=== PATIENT | male | born 1980 | race Two or more races ===

== ENCOUNTER 2020-09-28 06:28 | Day surgery (SDC) | payer OTHER ==
[2020-09-28] VITALS (11 sets, daily range): BP systolic 99–123; BP diastolic 55–80
[~2020-09-28] VITALS: Ht 195.6 cm; Wt 99.8 kg
[~2020-09-28 06:28] MED LIST: ceFAZolin 1gm IVPB IVPB ONE; celeBREX 200mg Cap **SURGERY PATIENTS ONLY ORAL ONE; oxyCONTIN 20mg tab ORAL ONE
[2020-09-28] MEDS ORDERED: GABAPENTIN100 MG ORAL (07:01)
[2020-09-28] MEDS ORDERED: IBUPROFEN600 M1 ORAL (07:01)
--- NOTE | 2020-09-28 08:05 | Operative Note - PDOC ---
Operative Note Operative Note Pre-op Diagnosis: right ankle sprain/ chondral damage Procedure: see op report Post-op Diagnosis: same as pre-op plus Operative Findings: consistent w/pre-op dx studies Anesthesia: regional Specimen: none Complications: none Condition: stable Estimated Blood Loss: none Implant(s) used?: No Aníbal Powers MD Sep 28, 2020 08:05
--- NOTE | 2020-09-28 08:05 | Pre-Procedure Note/Attestation ---
Pre-Procedure Note/Attestation Complete Prior to Procedure Planned Procedure: right Procedure Narrative: ankle arthroscopy, possible synvectomy, chondroplasty Indications for Procedure Pre-Operative Diagnosis: right ankle sprain/ chondral damage Attestation I attest that I discussed the nature of the procedure; its benefits; risks and complications; and alternatives (and the risks and benefits of such alternatives), prior to the procedure, with the patient (or the patient's legal access representative). I attest that, if there was a reasonable possibility of needing a blood transfusion, the patient (or the patient's legal access representative) was given the [facility] standardized written summary, pursuant to the [employer] Blood Safety Act ([place] Health and Safety Code # 1645, as amended). I attest that I re-evaluated the patient just prior to the surgery and that th ere has been no change in the patient's H&P, except as documented below: Aníbal Powers MD Sep 28, 2020 08:05
[2020-09-28] MEDS ORDERED: HYDROcodone/Acetamin 5/325 tab ORAL PRN ×2 (08:15→09:30)
[2020-09-28] MEDS ORDERED: Tylenol #3 tab (300mg/30mg) ORAL PRN (08:15)
[2020-09-28] MEDS ORDERED: HYDROmorphone 1mg/ml Carpuject SUBQ PRN (08:15)
[2020-09-28] MEDS ORDERED: Sterile Water Irrig 1000ml IRRIG ONE (09:00)
--- NOTE | 2020-09-28 09:29 | Anethesia Preoperative Eval ---
Anesthesia Pre-op PMH/ROS General Date of Evaluation: Sep 28, 2020 Time of Evaluation: 09:28 Anesthesiologist: Javid ASA Score: ASA 2 Mallampati Score Class I : Soft palate, uvula, fauces, pillars visible Class II: Soft palate, uvula, fauces visible Class III: Soft palate, base of uvula visible Class IV: Only hard plate visible Mallampati Classification: Class II Surgeon: Gio Diagnosis: R Ankle Pain Surgical Procedure: R Ankle Arthroscopy Anesthesia History: none Family History: no anesthesia problems Allergies: Coded Allergies: No Known Allergies (Unverified , 09/25/20) Medications: see eMAR Patient NPO?: Yes Past Medical History Musculoskeletal/Integumentary: Reports: other - L1 Vert Fx PSxH Narrative: Thoracoplasty Anesthesia Pre-op Phys. Exam Physician Exam Last Vital Signs Date Time Temp Pulse Resp B/P (MAP) Pulse Ox O2 Delivery O2 Flow Rate FiO2 09/28/20 06:47 97.0 69 18 119/80 97 Room Air Constitutional: NAD Neurologic: CN 2-12 intact Cardiovascular: RRR Respiratory: CTA Gastrointestinal: S/NT/ND Airway Exam Mallampati Score: Class II MO: full ROM: full Teeth: missing, intact Anesthesia Pre-op A/P Risk Assessment & Plan Assessment: ASA 2 Plan: GA, SED Status Change Before Surgery: No Pre-Antibiotics Dru Grams Ancef IV Given Within 1 Hr of Incision: Yes Time Given: 09:51 Fernando Hua MD Sep 28, 2020 09:29
[2020-09-28] MEDS ORDERED: Metoclopramide 10mg/2ml Inj IVP PRN (09:30)
[2020-09-28] MEDS ORDERED: Atropine Sulfate 0.4mg/ml inj IVP PRN (09:30)
[2020-09-28] MEDS ORDERED: LR 1000ml 1,000 ML IVLG SCH (09:30)
[2020-09-28] MEDS ORDERED: HYDROcodone/Acetamin 7.5/325 tab ORAL PRN (09:30)
[2020-09-28] MEDS ORDERED: oxyCODONE HCL/Acetaminophen 5/325mg ORAL PRN (09:30)
[2020-09-28] MEDS ORDERED: LORazepam Inj 2mg/ml 1ml IV PRN (09:30)
[2020-09-28] MEDS ORDERED: fentaNYL 100 mcg/2 mL IV PRN (09:30)
[2020-09-28] MEDS ORDERED: DiphenhydrAMINE 50mg/ml Inj IVP PRN (09:30)
[2020-09-28] MEDS ORDERED: Ketorolac 30mg Inj IV PRN ×2 (09:30)
[2020-09-28] MEDS ORDERED: Meperidine 25mg/1ml Inj (FOR RIGORS ONLY) IV PRN (09:30)
[2020-09-28] MEDS ORDERED: Midazolam 2mg/2ml Inj IVP PRN (09:30)
[2020-09-28] MEDS ORDERED: Acetaminophen (Non formulary) 100 ML IV ONE (09:30)
[2020-09-28] MEDS ORDERED: Labetalol 5mg/ml 20ml vial IV PRN (09:30)
[2020-09-28] MEDS ORDERED: Hydromorphone 0.5mg/0.5ml inj IVP PRN (09:30)
--- NOTE | 2020-09-28 09:30 | Immediate Post-Op Evaluation ---
Immediate Post-Op Evalulation Immediate Post-Op Evalulation Procedure: R Ankle Arthroscopy Date of Evaluation: Sep 28, 2020 Time of Evaluation: 11:14 IV Fluids: 700 LR Blood Products: 0 Estimated Blood Loss: 25 Urinary Output: 0 Blood Pressure Systolic: 99 Blood Pressure Diastolic: 61 Pulse Rate: 93 Respiratory Rate: 16 O2 Sat by Pulse Oximetry: 100 Temperature (Fahrenheit): 97 Pain Score (1-10): 2 Nausea: No Vomiting: No Complications 0 Patient Status: awake, reacts, patent, none Hydration Status: adequate Dru Grams Ancef IV Given Within 1 Hr of Incision: Yes Time Given: 09:51 Fernando Hua MD Sep 28, 2020 09:30
--- NOTE | 2020-09-28 09:31 | 48 Hour Post Anesthesia Eval ---
Post Anesthesia Evaluation Procedure: R Ankle Arthroscopy Date of Evaluation: Sep 28, 2020 Time of Evaluation: 13:24 Blood Pressure Systolic: 128 0: 62 Pulse Rate: 67 Respiratory Rate: 18 Temperature (Fahrenheit): 98 O2 Sat by Pulse Oximetry: 100 Airway: patent Nausea: No Vomiting: No Pain Intensity: 2 Hydration Status: adequate Cardiopulmonary Status: Stable Mental Status/LOC: patient returned to baseline Follow-up Care/Observations: 0 Post-Anesthesia Complications: 0 Follow-up care needed: ready to discharge Fernando Hua MD Sep 28, 2020 09:31
[2020-09-28] MEDS ORDERED: Bupivacaine 0.5% Inj 30 ml vial INJ ONE (09:36)
[2020-09-28] MEDS ORDERED: Ketorolac 30mg Inj ONE (09:36)
[2020-09-28] MEDS ORDERED: Duramorph PF 5mg/10ml amp ONE (09:36)
[2020-09-28] MEDS ORDERED: Lidocaine 1%/ 10mg/ml/EPI 0.01mg/ml 20ml INJ ONE (09:36)
[2020-09-28] MEDS ORDERED: Kenalog-40 1ml Vial ONE (09:36)
[2020-09-28] MEDS ORDERED: Sodium Chloride 10ml vial INJ ONE (09:40)
[2020-09-28] MEDS ORDERED: fentaNYL 100 mcg/2 mL IV ONE (09:41)
[2020-09-28] MEDS ORDERED: NS Irrig 3000ml IRRIG ONE ×2 (09:47→10:14)
--- NOTE | 2020-09-28 15:29 | Operative Note - Dictated ---
DATE OF OPERATION: 09/28/2020 PREOPERATIVE DIAGNOSIS: Status post right ankle sprain with secondary internal derangement, possible soft tissue impingement versus chondral damage. POSTOPERATIVE DIAGNOSES: 1. Right ankle sprain. 2. Right ankle soft tissue impingement medial and lateral gutter. 3. Grade 2 chondral damage lateral tibial cartilage. PROCEDURE: 1. Right ankle diagnostic arthroscopy. 2. Right ankle synovectomy, medial and lateral gutter. 3. Chondroplasty, distal anterior tibial plafond. 4. Removal of anterior lateral tibial exostosis. SURGEON: Aníbal Powers MD. ANESTHESIA: MAC with local. INDICATION FOR PROCEDURE: The patient is a pleasant gentleman, who had a pretty significant injury to the right ankle, subsequently was diagnosed with ankle sprain. He had continued to have significant pain and discomfort, had an MRI, which showed evidence of previous ankle sprain with focal edema along the calcaneus as well as the talus. The patient failed conservative treatment, elected to undergo right ankle arthroscopy, possible synovectomy, chondroplasty based on intraoperative findings. Risks, limitations, expectations, and complications related to procedures were discussed in detail. All questions addressed. DESCRIPTION OF PROCEDURE: After informed consent was obtained, patient was brought to the operating room. The patient was placed under general anesthesia. Right leg was prepped and draped in a sterile manner. Time-out was performed. Tibialis anterior tendon was identified along with the medial, lateral gutter as well as the superficial peroneal nerve. The ankle was then placed in traction and a 25-gauge needle was then placed in the ankle. Blunt dissection after the skin incision down to the capsule was performed, trocar reduced into the ankle joint. At this point, the anterolateral aspect of the ankle mortise was evaluated, was noted to have some stump of soft tissue impingement. With inside-out technique, lateral working portal was established and the synovectomy was extended into the lateral gutter . There was of note grade 2 chondral damage in the anterior lateral tibial plafond. The camera was then placed in the lateral working portal. There was significant soft tissue in the medial gutter. Debridement of the soft tissue was performed to prevent any further impingement. Once that was done, the camera was placed in the medial working portal. There was some prominence along the anterior lateral distal tibial plafond. A bur was then used to shave this exostosis out. Once this was done, the instruments were removed. Portal sites were closed with 4-0 nylon sutures. A posterior splint was applied. The patient was awoken and taken to recovery room with stable vital signs. ESTIMATED BLOOD LOSS: None. COMPLICATIONS: None. SPECIMENS: None. IMPLANTS: None. Aníbal Powers M.D. DR: DENISE JOB#: [id number] CC:
[2020-09-28] MEDS ORDERED: D5 1/2NS 1,000 ML IV SCH (17:00)
== END 2020-09-28 13:05 | disposition home or self-care (01) ==
LOC: SUR 06:28
DX: S93.401A Sprain of unspecified ligament of right ankle, initial encounter (principal); M25.871 Other specified joint disorders, right ankle and foot; X58.XXXA Exposure to other specified factors, initial encounter; Y92.9 Unspecified place or not applicable; M89.9 Disorder of bone, unspecified
CPT/HCPCS: 29891; 29895; 29999; 94003; J0131; J0690; J1100; J1170; J1885; J2250; J2405; J2704; J3010; J3301; J3490; U0004; 94150